=== PATIENT | female | born 1990 | race Two or more races ===

== ENCOUNTER 2018-07-29 22:52 | Emergency (ER) | payer SELFPAY ==
[~2018-07-29] VITALS: Ht 165.1 cm; Wt 65.3 kg
--- NOTE | 2018-07-29 23:05 | NUR ---
PT SULAIMAN FROM [facility]. FOUND BY [employer] WITH NO PANTS ON, ACTING BIZARRE, RAMBLING. BG 102 IN THE FIELD. PT IN BED 7 CONTINUING WITH BIZARRE BEHAVIOR AND RAMBLING IN [place]. WILL CONTINUE TO MONITOR.
--- NOTE | 2018-07-29 23:13 | NUR ---
PHLEB AT BEDSIDE FOR LAB DRAW
[2018-07-29 23:28] LABS: BASOPHILS % (AUTO) 0.4 % (0.0-2.0); EOSINOPHILS % (AUTO) 0.5 % (0.0-6.0); HEMATOCRIT 36 % (33-45); HEMOGLOBIN 12.1 g/dL (11.5-14.8); LYMPHOCYTES % (AUTO) 14.5 % (20.0-44.0); MEAN CORPUSCULAR HGB CONC 33 g/dl (31.0-36.0); MEAN CORPUSCULAR VOLUME 87 fL (82-100); MONOCYTES # (AUTO) 0.6 /CMM (0.1-1.30); MONOCYTES % (AUTO) 8.8 % (2.0-12.0); NEUTROPHILS # (AUTO) 5.4 /CMM (1.8-8.9); NEUTROPHILS % (AUTO) 75.8 % (43.0-81.0); PLATELET COUNT (AUTO) 253 /CMM (150-450); WHITE BLOOD COUNT (AUTO) 7.1 K/uL (4.3-11.0)
--- NOTE | 2018-07-29 23:28 | NUR ---
URINE COLLECTED AND GIVEN TO LAB
[2018-07-29] MEDS ORDERED: HALOPERIDOL LACTATE INJ 5 MG/ML VIAL IM ONE (23:30)
[2018-07-29 23:34] LABS: CALCIUM, SERUM 8.3 mg/dL (8.5-10.1); CARBON DIOXIDE 25 mmol/L (21-32); CHLORIDE 105 mmol/L (98-107); CREATININE 0.7 mg/dL (0.6-1.3); GLUCOSE 135 mg/dL (74-106); POTASSIUM 3.2 mmol/L (3.5-5.1); SODIUM SERUM 140 mmol/L (136-145); UREA NITROGEN, BLOOD 11 mg/dL (7-18)
[2018-07-29] MEDS ORDERED: HALOPERIDOL LACTATE INJ 5 MG/ML VIAL ONE (23:34)
[2018-07-29 23:37] LABS: APPEARANCE,URINE SL CLOUDY (CLEAR); BILIRUBIN,URINE NEGATIVE (NEGATIVE); BLOOD, URINE TRACE-INTA Ery/uL (NEGATIVE); COLOR,URINE YELLOW (YELLOW); KETONES,URINE TRACE (NEGATIVE); LEUKOCYTE ESTERASE ,URINE NEGATIVE (NEGATIVE); NITRITE, URINE NEGATIVE (NEGATIVE); PROTEIN,URINE TRACE mg/dl (NEGATIVE); UGLUCOSE NEGATIVE (NEGATIVE); UROBILINOGEN,URINE 0.2 EU/dL (0.2)
[2018-07-29 23:40] LABS: ALANINE AMINOTRANSFERASE 31 U/L (12-78); ALCOHOL, BLOOD < 3 mg/dL (0-0); ALKALINE PHOSPHATASE 96 U/L (46-116); ASPARTATE AMINOTRANSFERASE 24 U/L (15-37); BILIRUBIN,DIRECT 0.1 mg/dL (0.0-0.2); BILIRUBIN,TOTAL 0.4 mg/dL (0.2-1.0); SALICYLATE 0.4 mg/dL (2.8-20.0); TOTAL PROTEIN, SERUM 6.2 g/dL (6.4-8.2)
[2018-07-29 23:41] LABS: ACETAMINOPHEN 0 ug/ml (10-30)
[2018-07-29 23:43] LABS: BACTERIA,URINE Few /HPF (None Seen); SQUAMOUS EPITHELIAL CELL,UR Moderate /HPF (None Seen); WBC,URINE 21-50 /HPF (0-3)
[2018-07-30] MEDS ORDERED: HALOPERIDOL LACTATE INJ 5 MG/ML VIAL ONE (00:50)
--- NOTE | 2018-07-30 03:19 | NUR ---
Patient is resting comfortably in bed with eyes closed. Easily aroused. VSS
--- NOTE | 2018-07-30 06:17 | NUR ---
PT DENIES -SI, -HI, -VOICES. PT STATES "IM JUST TIRED".
--- NOTE | 2018-07-30 07:23 | NUR ---
ENDORSED TO CORTEZ LOVELL FOR JOSTIN
--- NOTE | 2018-07-30 10:30 | NUR ---
GIOVANNI received a call from CORTEZ Muñoz in ED requesting for a social work consult. Pt. is a 27 year old female who was brought into [facility] via [employer] who reported [facility] Pt. used [facility]. Pt. was evaluated by mid level clinician Manoj and was cleared psychiatrically. SW met with pt. bedside. Pt. appears dirty and disheveled. SW attempted to ask pt. questions several times, however pt. refused to provide any information to SW. Pt. appeared irritable and was not cooperative. SW informed CORTEZ Muñoz to inform SW when pt. is more alert and cooperative and SW will come to assess pt. again.
[2018-07-30 11:17] VITALS: BP 115/71
--- NOTE | 2018-07-30 11:19 | NUR ---
Patient given written and verbal discharge instructions. Patient verbalizes understanding of instructions. Patient is ambulatory with steady gait. Refuses offer of alf placement. Patient given list of available shelters in surrounding area.
== END 2018-07-30 11:18 | disposition home or self-care (01) ==
LOC: ER 22:55 → EDBD 22:55 → ER 07-30 11:18
DX: F15.959 Other stimulant use, unspecified with stimulant-induced psychotic disorder, unspecified (principal)
CPT/HCPCS: 36415; 51701; 80048; 80076; 80305; 80329; 81001; 84703; 85025; 87086; 96372; 99283; A4606; G0480 ×2; J1630 ×2; Z7610; 81000-TC